=== PATIENT | male | born 1975 | race Caucasian/White ===

== ENCOUNTER 2016-09-29 20:05 | Emergency (ER) | payer BC ==
[2016-09-29] MEDS ORDERED: ZOLOFT100 M1 PO (21:05)
[2016-09-29] MEDS ORDERED: CLARITIN10 M6 PO (21:05)
[2016-09-29] MEDS ORDERED: TRAMADOL HCL50 M2 PO (23:10)
[2016-09-29] MEDS ORDERED: KEFLEX500 M4 PO (23:10)
[2016-09-29] MEDS ORDERED: MOBIC7.5 M2 PO (23:10)
[2016-09-29] MEDS ORDERED: PERCOCET 5-3251 EACH PO (23:10)
== END 2016-09-30 00:59 ==
LOC: EDMED 20:05
PROC: 0PSJXZZ Reposition Left Radius, External Approach (ICD-10-PCS; principal; 2016-09-30)
DX: S52.502A Unspecified fracture of the lower end of left radius, initial encounter for closed fracture (principal); Z23 Encounter for immunization; V00.121A Fall from non-in-line roller-skates, initial encounter; Y92.009 Unspecified place in unspecified non-institutional (private) residence as the place of occurrence of the external cause
CPT/HCPCS: J0690; J1170; J2270; J2405

== ENCOUNTER 2016-09-30 15:05 | Day surgery (SDC) | payer BC ==
[~2016-09-30 15:05] MED LIST: CLARITIN10 M6 PO; KEFLEX500 M4 PO; MOBIC7.5 M2 PO; PERCOCET 5-3251 EACH PO; TRAMADOL HCL50 M2 PO; ZOLOFT100 M1 PO
[2016-10-02] MEDS ORDERED: PERCOCET 10-321 EACH PO (11:22)
[2016-10-02] MEDS ORDERED: OXYCONTIN20 M2 PO (11:23)
[2016-10-02] MEDS ORDERED: ULTRAM50 M1 PO (11:25)
== END 2016-10-02 12:27 ==
LOC: SHSA 15:05 → ORE 18:15 → 5EB 20:40
PROC: 0PSJ04Z Reposition Left Radius with Internal Fixation Device, Open Approach (ICD-10-PCS; principal; 2016-09-30)
PROC: 0L860ZZ Division of Left Lower Arm and Wrist Tendon, Open Approach (ICD-10-PCS; 2016-09-30)
PROC: 0PBL0ZZ Excision of Left Ulna, Open Approach (ICD-10-PCS; 2016-09-30)
DX: S52.572A Other intraarticular fracture of lower end of left radius, initial encounter for closed fracture (principal); S52.612B Displaced fracture of left ulna styloid process, initial encounter for open fracture type I or II; F32.9 Major depressive disorder, single episode, unspecified; Z79.899 Other long term (current) drug therapy; Z88.5 Allergy status to narcotic agent; Z87.891 Personal history of nicotine dependence; Z98.890 Other specified postprocedural states; W18.39XA Other fall on same level, initial encounter; Y93.89 Activity, other specified
CPT/HCPCS: C1713; J0690; J1170; J2250; J2270; J3010